=== PATIENT | male | born 1945 | race Caucasian/White ===

== ENCOUNTER 2016-10-13 05:10 | Inpatient (IN) | payer MEDICARE, OTHER ==
[~2016-10-13 05:10] MED LIST: COREG6.25 M1 PO; COZAAR50 M1 PO; VITAMIN D31000 UNI3 PO
[2016-10-13 05:47] LABS: URINE BILIRUBIN NEGATIVE (NEG); URINE BLOOD NEGATIVE (NEG); URINE GLUCOSE (UA) NEGATIVE (NEG); URINE KETONE SMALL (NEG); URINE LEUKOCYTE ESTERASE POSITIVE (NEG); URINE NITRITE NEGATIVE (NEG); URINE PROTEIN MODERATE (NEG); URINE SPECIFIC GRAVITY 1.025 (1.003-1.030)
[2016-10-13 05:48] LABS: URINE APPEARANCE CLEAR; URINE COLOR DARK YELLOW
[2016-10-13 05:57] LABS: URINE EPITHELIAL CELLS 0-1 /[HPF] (0-10); URINE RBC 0-+1 /[HPF] (0-5); URINE WBC 0-1 /[HPF] (0-5)
[2016-10-13 06:15] LABS: ALB/GLOB RATIO 0.8 (0.8-2.0); ALBUMIN 3.5 g/dl (3.5-5.0); ALKALINE PHOSPHATASE 70 U/L (33-138); ALT/SGPT 23 U/L (12-78); BILIRUBIN,TOTAL 0.8 mg/dl (0.0-1.5); BLOOD UREA NITROGEN 25 mg/dl (6-24); CALCIUM 9.3 mg/dl (8.5-10.5); CARBON DIOXIDE-VENOUS 17 mmol/L (22-32); CHLORIDE 110 mmol/l (96-110); CREATININE 2.02 mg/dl (0.60-1.30); GLUCOSE 100 mg/dL (70-110); SODIUM 138 mmol/L (135-145); eGFR VALUE FOR BLACK 37 mL/Min
[2016-10-13 06:19] LABS: ANION GAP 16 mmol/L (0-20); AST/SGOT 22 U/L (10-40); POTASSIUM 4.8 mmol/L (3.7-5.1)
[2016-10-14 06:12] LABS: BASO % 0.1 % (0-2); HCT-HEMATOCRIT 42.8 % (36.0-53.5); HGB-HEMOGLOBIN 14.4 gm/dl (13.5-17.0); IMMATURE GRANULOCYTES ABSOLUTE 0.05 tho/cmm (0-0.03); IMMATURE GRANULOCYTES PERCENT 0.3 % (0-0.3); LYMPH % 12.9 % (20-45); LYMPH ABSOLUTE COUNT 2.1 tho/cmm (0.8-4.5); MCH (MEAN CORPUSCULAR HGB) 29.8 pg (28.0-32.0); MCHC MEAN CORPUSCULAR HGB CONC 33.6 % (32.0-36.0); MCV (MEAN CELL VOLUME) 88.6 fl (82.0-96.0); MEAN PLATELET VOLUME 9.5 cmc (9.4-12.4); MONO % 6.6 % (0-12); MONOCYTE ABSOLUTE COUNT 1.1 tho/cmm (0.0-1.2); NEUTROPHILS % 80.1 % (40-80); PLATELET COUNT 294 tho/cmm (150-450); RED BLOOD COUNT 4.83 mil/cmm (4.40-5.70); WHITE BLOOD COUNT 16.3 tho/cmm (4.0-10.0)
[2016-10-14 06:25] LABS: ALBUMIN 2.8 g/dl (3.5-5.0); ANION GAP 14 mmol/L (0-20); BLOOD UREA NITROGEN 37 mg/dl (6-24); CALCIUM 8.5 mg/dl (8.5-10.5); CARBON DIOXIDE-VENOUS 20 mmol/L (22-32); CHLORIDE 110 mmol/l (96-110); CREATININE 2.06 mg/dl (0.60-1.30); GLUCOSE 100 mg/dL (70-110); PHOSPHOROUS 3.9 mg/dl (2.5-4.9); SODIUM 139 mmol/L (135-145); eGFR VALUE FOR BLACK 36 mL/Min
--- NOTE | 2016-10-14 21:32 | NUR ---
VIRTUAL CARE NOTE: ASSESSMENT DEFERRED. PT. SLEEPING.
[2016-10-15 05:30] LABS: BASO % 0.2 % (0-2); EOS % 0.5 % (0-7); EOSINOPHIL ABSOLUTE COUNT 0.1 tho/cmm (0.0-0.7); HGB-HEMOGLOBIN 14.6 gm/dl (13.5-17.0); IMMATURE GRANULOCYTES ABSOLUTE 0.04 tho/cmm (0-0.03); IMMATURE GRANULOCYTES PERCENT 0.3 % (0-0.3); MCH (MEAN CORPUSCULAR HGB) 29.6 pg (28.0-32.0); MCHC MEAN CORPUSCULAR HGB CONC 33.2 % (32.0-36.0); MCV (MEAN CELL VOLUME) 89.2 fl (82.0-96.0); MEAN PLATELET VOLUME 9.6 cmc (9.4-12.4); MONO % 7.4 % (0-12); NEUTROPHIL ABSOLUTE COUNT 10.1 tho/cmm (1.6-8.0); NEUTROPHIL-AUTOMATED 10.1 tho/cmm (1.6-8.0); NEUTROPHILS % 76.6 % (40-80); PLATELET COUNT 264 tho/cmm (150-450); RED BLOOD COUNT 4.93 mil/cmm (4.40-5.70); RED CELL DISTRIBUTION WIDTH 15.2 % (12.4-16.4); WHITE BLOOD COUNT 13.2 tho/cmm (4.0-10.0)
[2016-10-15 05:40] LABS: ALBUMIN 3.3 g/dl (3.5-5.0); ANION GAP 14 mmol/L (0-20); BLOOD UREA NITROGEN 36 mg/dl (6-24); CALCIUM 8.5 mg/dl (8.5-10.5); CARBON DIOXIDE-VENOUS 20 mmol/L (22-32); CHLORIDE 112 mmol/l (96-110); CREATININE 1.68 mg/dl (0.60-1.30); GLUCOSE 87 mg/dL (70-110); PHOSPHOROUS 2.6 mg/dl (2.5-4.9); POTASSIUM 4.3 mmol/L (3.7-5.1); SODIUM 142 mmol/L (135-145); eGFR VALUE FOR BLACK 47 mL/Min
--- NOTE | 2016-10-15 20:42 | NUR ---
VIRTUAL CARE NOTE: PT. IN BED, STATES HAS A LITTLE BIT OF PAIN, RN JUST GETTING PAIN MEDS AT THIS TIME. ALSO STATES HIS ABD. WAS SOMEWHAT SWOLLEN PRIOR TO SURGERY AND IS MORE EXTENSIVE THAN PRIOR. EDUCATION PROVIDED REGARDING HEALING PROCESS OF ABD WITH TIME WHEN FLUIDS SHIFT AND INFLAMMATION OF TISSUES RESOLVES THIS SHOULD IMPROVE. HE MENTIONS THAT HE IS PASSING FLATUS AND STOOLS. PRAISE GIVEN FOR AMBULATION. EDUCATION REINFORCED WITH C, AND DB. AND USE OF I.S. DENIES FURTHER NEEDS OR QUESTIONS. INSTRUCTED TO CALL FOR FUTURE NEEDS. STATES VERBAL AGREEMENT.
--- NOTE | 2016-10-16 16:00 | NUR ---
VIRTUAL CARE NOTE: PT AWAKE, SITTING UP CHAIR. PT STATES HE IS FEELING WELL, STATES TOLERATING FULL LIQUID DIET, DENIES N/V. STATES PAIN TOLERABLE. POSSIBLE DC TOMORROW. WILL INCREASE DIET FOR BREAKFAST. VN WILL CONTINUE TO MONITOR RECORD AND FOLLOW W/ PT
--- NOTE | 2016-10-16 22:02 | NUR ---
JUN STRANGE-PATIENT LAYING IN BED COMFORTABLY AND DOING WELL. HE TOLERATED HIS FULL LIQUIDS TONIGHT FOR DINNER AND I TOLD HIM I THINK HE GETS A SOFT BREAKFAST IN THE MORNING AND REMINDED HIM TO JUST TAKE SLOW. HE SAID THE DOCTOR SAID HE MIGHT GET TO GO HOME TOMORROW. PATIENT DID SAY THAT HE HAS HAD GAS AND LIQUID STOOL TODAY BUT URINE HAS BEEN CLEAR EXCEPT FOR 1 TIME HAS SOME CLOTS BUT THEY HAVE SINCE CLEARED UP. NO FURTHER QUESTIONS OR CONCERNS AT THIS TIME.
[2016-10-17 04:49] LABS: HGB-HEMOGLOBIN 13.1 gm/dl (13.5-17.0); PLATELET COUNT 238 tho/cmm (150-450)
[2016-10-17 06:00] LABS: ANION GAP 10 mmol/L (0-20); BLOOD UREA NITROGEN 18 mg/dl (6-24); CALCIUM 8.4 mg/dl (8.5-10.5); CARBON DIOXIDE-VENOUS 24 mmol/L (22-32); CHLORIDE 111 mmol/l (96-110); CREATININE 1.35 mg/dl (0.60-1.30); GLUCOSE 90 mg/dL (70-110); POTASSIUM 4.2 mmol/L (3.7-5.1); SODIUM 141 mmol/L (135-145); eGFR VALUE FOR BLACK 61 mL/Min
[2016-10-17] MEDS ORDERED: TYLENOL325 M2 PO (07:53)
[2016-10-17] MEDS ORDERED: ULTRAM50 M1 PO (07:54)
== END 2016-10-17 13:25 | DRG 331 ==
LOC: SHSA 05:10 → ORW 07:28 → PACU 10:37 → 5WD 12:10
PROVIDERS: Family Medicine; ADMIT Specialist
PROC: 0WHR8YZ Insertion of Other Device into Genitourinary Tract, Via Natural or Artificial Opening Endoscopic (ICD-10-PCS; principal; 2016-10-13)
PROC: 0DTM0ZZ Resection of Descending Colon, Open Approach (ICD-10-PCS; 2016-10-13)
PROC: 0DTL0ZZ Resection of Transverse Colon, Open Approach (ICD-10-PCS; 2016-10-13)
DX: D12.4 Benign neoplasm of descending colon (principal)
CPT/HCPCS: J0295; J0690; J1650; J2270; J2405; J2765; J7030